=== PATIENT | female | born 1965 | race Caucasian/White ===

== ENCOUNTER 2018-01-02 18:23 | Emergency (ER) | payer BC ==
--- NOTE | 2018-01-02 18:49 | Emergency Department Record ---
History of Present Illness - General Chief complaint: ENT Stated complaint: CANT EAT,TROUBLE SWLLOWING Time Seen by Provider: 01/02/18 18:45 Source: Patient Mode of Arrival: Ambulatory Limitations: No limitations - History of Present Illness Initial comments: 52 yo female presents to ED for evaluation of progressively worsening difficulty in swallowing over the past several days. Patient reports a history of esophageal strictures/scar tissue from previous gastric bypass surgery and duodenal surgery requiring stenting and dilations in [place]. Patient reports that she is still able to swallowing liquids, but is unable to tolerate solid foods unless pured. Patient denies vomiting of inablity to handle her secretions. MD complaint: Other (dysphagia) Onset/Timin -: Days(s) Severity: Moderate Quality: Aching Consistency: Intermittent Improves with: None Worsens with: Swallowing Associated Symptoms: Other - Related Data Home Medications Medication Instructions Recorded Confirmed Last Taken Budesonide [Pulmicort] 0.25 mg IH ASDIR 01/02/18 01/02/18 Unknown Citalopram Hydrobromide 20 mg PO BID 01/02/18 01/02/18 Unknown [Citalopram HBr] Cyanocobalamin (Vitamin B-12) 1,000 mcg IM MONTHLY 01/02/18 01/02/18 Unknown [Cyanocobalamin Injection] Furosemide 40 mg PO BID 01/02/18 01/02/18 Unknown Levothyroxine Sodium 75 mcg PO DAILY 01/02/18 01/02/18 Unknown Lifitegrast [Xiidra] 1 each OP DAILY 01/02/18 01/02/18 Unknown Potassium Chloride [Klor-Con] 20 meq PO DAILY 01/02/18 01/02/18 Unknown Ranitidine HCl 150 mg PO BID 01/02/18 01/02/18 Unknown Rivaroxaban [Xarelto] 20 mg PO DAILY 01/02/18 01/02/18 Unknown Allergies Allergy/AdvReac Type Severity Reaction Status Date / Time Penicillins Allergy ANAPHYLAXIS Verified 01/02/18 18:33 Sulfa (Sulfonamide Allergy HIVES Verified 01/02/18 18:33 Antibiotics) Travel Screening - Travel/Exposure Within Last 30 Days Have you traveled within the last 30 days?: No Review of Systems Constitutional: Denies: Chills, Fever, Malaise, Night sweats Eyes: Denies: Eye discharge, Eye pain ENT: Reports: Throat pain. Denies: Congestion, Ear pain, Epistaxis Respiratory: Denies: Cough, Dyspnea Cardiovascular: Denies: Chest pain, Dyspnea on exertion Endocrine: Denies: Fatigue, Heat or cold intolerance Gastrointestinal: Denies: Abdominal pain, Nausea, Vomiting Genitourinary: Denies: Incontinence, Retention Musculoskeletal: Denies: Arthralgia, Back pain, Gout, Joint swelling Skin: Denies: Bruising, Change in color Neurological: Denies: Abnormal gait, Confusion, Headache, Seizure Psychiatric: Denies: Anxiety Hematological/Lymphatic: Denies: Anemia, Blood Clots Past Medical History - SOCIAL HISTORY Smoking Status: Never smoker Alcohol Use: Rare Drug Use: None - RESPIRATORY Hx Respiratory Disorders: Yes Hx Asthma: Yes - CARDIOVASCULAR Hx Cardio Disorders: Yes Hx Deep Vein Thrombosis: Yes Hx Hypertension: Yes - NEURO Hx Neuro Disorders: Yes Hx Headaches: Yes - GI Hx GI Disorders: Yes Hx Abdominal Pain: Yes - Hx Genitourinary Disorders: No - ENDOCRINE Hx Endocrine Disorders: Yes Hx Thyroid Disease: Yes (hypo) - MUSCULOSKELETAL Hx Musculoskeletal Disorders: No - PSYCH Hx Psych Problems: Yes Hx Depression: Yes - HEMATOLOGY/ONCOLOGY Hx Hematology/Oncology Disorders: Yes Comment:: factor 5 Family Medical History Any Significant Family History?: No Physical Exam - General General Appearance: Alert, Oriented x3, Cooperative, Mild distress Limitations: No limitations - Head Head exam: Atraumatic, Normocephalic, Normal inspection Head exam detail: negative: Abrasion, Contusion, Middleton's sign, General tenderness, Hematoma, Laceration - Eye Eye exam: Normal appearance. negative: Conjunctival injection, Periorbital swelling, Periorbital tenderness, Scleral icterus - ENT Ear exam: negative: Auricular hematoma, Auricular trauma Nasal Exam: negative: Active bleeding, Discharge, Dried blood, Foreign body Mouth exam: negative: Drooling, Laceration, Muffled voice, Tongue elevation Throat exam: negative: Tonsillar erythema, Tonsillomegaly, R peritonsillar mass , L peritonsillar mass - Neck Neck exam: Normal inspection. negative: Meningismus, Tenderness - Respiratory Respiratory exam: Normal lung sounds bilaterally. negative: Rales, Respiratory distress, Rhonchi, Stridor - Cardiovascular Cardiovascular Exam: Regular rate, Normal rhythm, Normal heart sounds - GI/Abdominal GI/Abdominal exam: Soft. negative: Rebound, Rigid, Tenderness - Rectal Rectal exam: Deferred - exam: Deferred - Extremities Extremities exam: Normal inspection. negative: Calf tenderness, Pedal edema, Tenderness - Back Back exam: Denies: CVA tenderness (R), CVA tenderness (L) - Neurological Neurological exam: Alert, Normal gait, Oriented X3 - Psychiatric Psychiatric exam: Normal affect, Normal mood - Skin Skin exam: Normal color. negative: Abrasion Type of lesion: negative: abrasion Course Vital Signs 01/02/18 18:26 Temperature 98.2 F Pulse Rate 80 Respiratory 20 Rate Blood Pressure 192/81 Pulse Ox 99 - Reevaluation(s) Reevaluation #1: 01/02/18 19:00 Patient was seen and examined Able to tolerate PO fluids, no evidence for esophageal obstruction on examination. Will refer the patient to [facility] specialty clinic for GI evaluation and possible dilation. Disposition Disposition: Discharge Clinical Impression: Dysphagia Qualifiers: Dysphagia type: unspecified Qualified Code(s): R13.10 - Dysphagia, unspecified Disposition: Home, Self-Care Condition: (2) Stable Instructions: Dysphagia (ED) Additional Instructions: Return to ED if your symptoms worsen or if you have any concerns. Follow-up with Dr. Malcolm as directed. Referrals: ALONZO COBB [DOCTOR OF OSTEOPATH] - [facility] Specialty Clinics [Provider Group] Forms: Patient Portal Access Time of Disposition: 18:49 Quality - Quality Measures Quality Measures: N/A - Blood Pressure Screening Does Patient Have Any of the Following: No Blood Pressure Classification: Pre-Hypertensive BP Reading Systolic Measurement: 192 Diastolic Measurement: 81 Screening for High Blood Pressure: < Pre-Hypertensive BP, F/U Documented > [ G8950] Pre-Hypertensive Follow-up Interventions: Referral to alternative/primary care provider.
== END 2018-01-02 19:02 | disposition home or self-care (01) ==
LOC: ER 18:23
DX: R13.10 Dysphagia, unspecified (principal); I10 Essential (primary) hypertension; Z98.84 Bariatric surgery status
CPT/HCPCS: 99282

== ENCOUNTER 2019-02-21 17:08 | Emergency (ER) | payer SELFPAY ==
[2019-02-21] MEDS ORDERED: 0.9 % SODIUM CHLORIDE 1000ML 1,000 ML IV ONE (17:33)
[2019-02-21] MEDS ORDERED: HYDROMORPHONE HCL 2 MG/ML VIAL IVP ONE (17:36)
--- NOTE | 2019-02-21 17:36 | Emergency Department Record ---
History of Present Illness - General Chief complaint: Flank Pain Stated complaint: RT SIDE PAIN(LOWER BACK TO ABD) Time Seen by Provider: 02/21/19 17:30 Source: Patient, RN notes reviewed Mode of Arrival: Ambulatory - History of Present Illness Initial comments: patient with right upper quad pain and she was getting into her car this am twisting and felt something pop. Patient has a bleeding disorder and stopped xarelto and thyroid about one year ago. Radiation: R flank Severity: Severe Severity scale (1-10): 10 Consistency: Constant Improves with: None Worsens with: Movement - Related Data Home Medications Medication Instructions Recorded Confirmed Last Taken Citalopram Hydrobromide [Celexa] 20 mg PO DAILY 02/21/19 02/21/19 Unknown Famotidine [Pepcid AC] 10 mg PO DAILY 02/21/19 02/21/19 Unknown Allergies Allergy/AdvReac Type Severity Reaction Status Date / Time Penicillins Allergy ANAPHYLAXIS Unverified 02/21/19 18:09 Sulfa (Sulfonamide Allergy HIVES Unverified 02/07/18 08:29 Antibiotics) morphine AdvReac PT UNSURE Verified 02/21/19 18:09 OF REACTION Travel Screening - Travel/Exposure Within Last 30 Days Have you traveled within the last 30 days?: No - Travel/Exposure Within Last Year Have you traveled outside the [place] in the last year?: No - Additonal Travel Details Have you been exposed to anyone with a communicable illness?: No - Travel Symptoms Symptom Screening: None Review of Systems Reviewed: No additional complaints except as noted below Constitutional: Reports: As per HPI. Denies: Chills, Fever, Malaise, Night sweats, Weakness, Weight change Eyes: Reports: As per HPI. Denies: Eye discharge, Eye pain, Photophobia, Vision change ENT: Reports: As per HPI. Denies: Congestion, Dental pain, Ear pain, Epistaxis, Hearing loss, Throat pain Respiratory: Reports: As per HPI, Cough. Denies: Dyspnea, Hemoptysis, Stridor, Wheezes Cardiovascular: Reports: As per HPI. Denies: Arrhythmia, Chest pain, Dyspnea on exertion, Edema, Murmurs, Orthopnea, Palpitations, Paroxysmal nocturnal dyspnea, Rheumatic Fever, Syncope Endocrine: Reports: As per HPI. Denies: Fatigue, Heat or cold intolerance, Polydipsia, Polyuria Gastrointestinal: Reports: As per HPI, Abdominal pain. Denies: Constipation, Diarrhea, Hematemesis, Hematochezia, Melena, Nausea, Vomiting Genitourinary: Reports: As per HPI. Denies: Abnormal menses, Discharge, Dyspareunia, Dysuria, Frequency, Hematuria, Incontinence, Retention, Urgency Musculoskeletal: Reports: As per HPI. Denies: Arthralgia, Back pain, Gout, Joint swelling, Myalgia, Neck pain Skin: Reports: As per HPI. Denies: Bruising, Change in color, Change in hair/nails, Lesions, Pruritus, Rash Neurological: Reports: As per HPI. Denies: Abnormal gait, Confusion, Headache, Numbness, Paresthesias, Seizure, Tingling, Tremors, Vertigo, Weakness Psychiatric: Reports: As per HPI. Denies: Anxiety, Auditory hallucinations, Depression, Homicidal thoughts, Suicidal thoughts, Visual hallucinations Hematological/Lymphatic: Reports: As per HPI. Denies: Anemia, Blood Clots, Easy bleeding, Easy bruising, Swollen glands Past Medical History - SOCIAL HISTORY Smoking Status: Never smoker Alcohol Use: Occasional Drug Use: None - RESPIRATORY Hx Respiratory Disorders: Yes Hx Asthma: Yes - CARDIOVASCULAR Hx Cardio Disorders: Yes Hx Deep Vein Thrombosis: Yes Hx Hypertension: Yes - NEURO Hx Neuro Disorders: Yes Hx Headaches: Yes - GI Hx GI Disorders: Yes Hx Abdominal Pain: Yes - Hx Genitourinary Disorders: No - ENDOCRINE Hx Endocrine Disorders: Yes Hx Thyroid Disease: Yes (hypo) - MUSCULOSKELETAL Hx Musculoskeletal Disorders: No - PSYCH Hx Psych Problems: Yes Hx Depression: Yes - HEMATOLOGY/ONCOLOGY Hx Hematology/Oncology Disorders: Yes Comment:: factor 5 Family Medical History Any Significant Family History?: No Physical Exam - General General Appearance: Alert, Oriented x3, Cooperative, No acute distress - Head Head exam: Normal inspection - Eye Eye exam: Normal appearance, PERRL Pupils: Normal accommodation - ENT ENT exam: Normal exam, Mucous membranes moist, Normal external ear exam, Normal orophraynx, TM's normal bilaterally Ear exam: Normal external inspection. negative: External canal tenderness Nasal Exam: Normal inspection. negative: Discharge, Sinus tenderness Mouth exam: Normal external inspection, Tongue normal Teeth exam: Normal inspection. negative: Dental caries Throat exam: Normal inspection. negative: Tonsillar erythema, Tonsillar exudate - Neck Neck exam: Normal inspection, Full ROM. negative: Tenderness - Respiratory Respiratory exam: Normal lung sounds bilaterally. negative: Respiratory distress - Cardiovascular Cardiovascular Exam: Regular rate, Normal rhythm, Normal heart sounds - GI/Abdominal GI/Abdominal exam: Soft, Normal bowel sounds, Tenderness (right upper quad pain with a mass palpated which is painful) - Rectal Rectal exam: Deferred - exam: Deferred - Extremities Extremities exam: Normal inspection, Full ROM, Normal capillary refill. negative: Tenderness - Back Back exam: Reports: Normal inspection, Full ROM. Denies: Muscle spasm, Rash noted, Tenderness - Neurological Neurological exam: Alert, Normal gait, Oriented X3, Reflexes normal - Psychiatric Psychiatric exam: Normal affect, Normal mood - Skin Skin exam: Dry, Intact, Normal color, Warm Course Vital Signs 02/21/19 17:18 Temperature 97.6 F Pulse Rate 85 Respiratory 20 Rate Blood Pressure 198/111 Pulse Ox 98 - Reevaluation(s) Reevaluation #1: discussed case with Dr Ocampo and will transfer to Dr Stanton at [facility] 02/21/19 19:02 Medical Decision Making - Data Complexity MDM Data: Labs Ordered and/or Reviewed (hg 10.7), X-Ray Ordered and/or Reviewed (CT large hematoma of the abdominal wall) - Lab Data Result diagrams: 02/21/19 17:42 02/21/19 17:42 Disposition Clinical Impression: Abdominal pain Qualifiers: Abdominal location: right upper quadrant Qualified Code(s): R10.11 - Right upper quadrant pain Hematoma of abdominal wall Qualifiers: Encounter type: initial encounter Qualified Code(s): S30.1XXA - Contusion of abdominal wall, initial encounter Disposition: Acute Care Hospital Transfer Condition: (1) Good Forms: Patient Portal Access Time of Disposition: 19:04 Quality - Quality Measures Quality Measures: N/A - Blood Pressure Screening Does Patient Have Any of the Following: No Blood Pressure Classification: Hypertensive Reading Systolic Measurement: 198 Diastolic Measurement: 111 Screening for High Blood Pressure: < First Hypertensive BP, F/U Documented > [G8950] First Hypertensive Follow-up Interventions: Referral to alternative/primary care provider.
[2019-02-21 17:51] LABS: ABSOLUTE NEUTROPHIL COUNT 6.44; BASO % 0.7 % (0-6); EOS % 2.5 % (0-6); GRAN % 73.9 % (47-80); HEMATOCRIT 35.7 % (35.0-47.0); HEMOGLOBIN 10.7 gm/dl (11.6-16.0); LYMPH % 15.1 % (16-45); MEAN CELL VOLUME 90.2 fl (81-97); MONO % 7.8 % (0-9); PLATELET COUNT 290 K/uL (130-400); RED BLOOD COUNT 3.96 M/uL (3.80-5.40); RED CELL DISTRIBUTION WIDTH 14.6 % (11.5-14.5); WHITE BLOOD COUNT W/O DIFF 8.7 K/uL (4.2-12.2)
[2019-02-21] MEDS: ONDANSETRON HCL IV 4 MG/2 ML VIAL IVP ONE ×2 (17:53→19:50)
[2019-02-21 18:00] LABS: BLOOD UREA NITROGEN 17 mg/dL (6-20); CREATININE 0.7 mg/dL (0.5-0.9); EST GLOMERULAR FILTRATION RATE > 60 mL/min
[2019-02-21 18:01] LABS: LIPASE 27 U/L (13-60); TOTAL PROTEIN 6.5 g/dL (6.6-8.7)
[2019-02-21 18:03] LABS: GLUCOSE,RANDOM 127 mg/dL (74-109)
[2019-02-21 18:06] LABS: ALB/GLOB RATIO 1.4 (1.1-1.8); ALBUMIN 3.8 g/dL (4.0-5.0); ALKALINE PHOSPHATASE 105 U/L (35-104); ALT/SGPT 19 U/L (<33); AST/SGOT 26 U/L (10.0-35.0)
--- NOTE | 2019-02-21 19:08 | CT SCAN REPORT ---
EXAMINATION: CT Abdomen and Pelvis without IV Contrast EXAM DATE: 02/21/2019 6:31 PM TECHNIQUE: Standard protocol CT imaging of the abdomen and pelvis was performed without intravenous c ontrast. INDICATION: right upper quad pain COMPARISON: None ENCOUNTER: Not applicable CT ABDOMEN AND PELVIS FINDINGS: Lung Bases: Included extent of the lung bases are clear. Hepatobiliary: The liver has a normal size with a smooth surface. Normal gallbladder. Pancreas: The pancreas is normal. Spleen: The spleen is not enlarged. Adrenals: Small right adrenal nodule measuring 1.9 cm. Normal left adrenal. Kidneys, Ureters, & Bladder: Both kidneys have a normal size and morphology. There is no hydronephro sis. Both ureters have a normal course and caliber and the urinary bladder a normal morphology and un iform wall thickness. No ureteral or bladder calculi are identified. Gastrointestinal: Staple line noted along the stomach which is nondistended. Small bowel is of normal caliber with no inflammation.. The appendix is not seen although there are no pericecal inflammatory changes. The large bowel is within normal limits. Reproductive Organs: Uterus is absent. Lymphatic System: There is no adenopathy within the abdomen or pelvis. Vasculature: Mild aortoiliac calcification. No aneurysm. Peritoneum: No free fluid, free air, or inflammation Abdominal wall & Musculoskeletal: There is hyperdense expansion centered at the right oblique muscula ture measuring 14 x 11 x 18 cm suspicious for intramuscular hematoma. Assessment of the solid organs, soft tissues, and vascular structures is overall limited on noncontra st imaging, IMPRESSION: 1. Very large intramuscular hematoma centered within the right oblique musculature likely accounting for the patient's right upper quadrant pain. 2. No acute inflammatory process of the abdomen or pelvis. No intestinal obstruction. 3. Other incidental findings as above. Dictated by: Jordi Trent MD on 02/21/2019 6:42 PM. .
--- NOTE | 2019-02-21 19:08 | RADIOLOGY REPORT ---
EXAMINATION: Portable chest, 1 view EXAM DATE: 02/21/2019 6:31 PM INDICATION: cough FINDINGS: The heart is not enlarged. The lungs and pleural surfaces are clear. Impression: Normal chest. Dictated by: Pipe Coburn MD on 02/21/2019 6:43 PM. .
== END 2019-02-21 19:50 | disposition short-term general hospital (02) ==
LOC: ER 17:08
DX: S30.1XXA Contusion of abdominal wall, initial encounter (principal); R10.11 Right upper quadrant pain; R05 Cough; I10 Essential (primary) hypertension; X50.0XXA Overexertion from strenuous movement or load, initial encounter
CPT/HCPCS: 71045; 74176; 80053; 83690; 85025; 96374; 96375; 99285; J2405